=== PATIENT | male | born 1975 | race African-American/Black ===

== ENCOUNTER 2019-05-20 05:04 | Emergency (ER) | payer OTHER ==
--- NOTE | 2019-05-20 05:47 | ED ---
Head Injury - HPI Summary HPI Summary: Pt. is a 43 y.o male who presents to the ER for head and face injury that occurred today around 0300. Pt. is an inmate at [employer]. Pt. states he was in his top bunk and was trying to hang a TV from the light when he lost his balance and fell. Pt. states he stuck his face on the ground. He believes he lost consciousness. Pt. c/o head/face/neck pain. Denies any other injuries. Denies CP, SOB, abd. pain. Past hx of DM and GERD. Unaware of last tetanus immunization. Sxs are moderate in severity. Touching affective area makes sxs worse. Rest makes sxs better. - History Of Current Complaint Chief Complaint: EDHeadInjury Stated Complaint: HEAD LAC PER GUARD Time Seen by Provider: 05/20/19 05:40 Hx Obtained From: Patient Pain Intensity: 7 - Allergies/Home Medications Allergies/Adverse Reactions: Allergies Allergy/AdvReac Type Severity Reaction Status Date / Time No Known Allergies Allergy Verified 05/20/19 05:07 Home Medications: Home Medications Calcium Polycarbophil [Fibercon] 500 mg PO BID 05/20/19 [History Confirmed 05/20] Omeprazole CAP (NF) [Prilosec CAP* 20 MG] 20 mg PO DAILY 05/20/19 [History Confirmed 05/20/19] glipiZIDE [Glucotrol] 5 mg PO DAILY 05/20/19 [History Confirmed 05/20/19] hydroCHLOROthiazide [Hydrochlorothiazide] 50 mg PO DAILY 05/20/19 [History Confirmed 05/20/19] PMH/Surg Hx/FS Hx/Imm Hx Previously Healthy: Yes Infectious Disease History: No Infectious Disease History: Denies: Traveled Outside the [place] in Last 30 Days - Family History Known Family History: Positive: Non-Contributory - Social History Occupation: Unemployed Lives: Dormitory/Roommates - [employer] [facility] Alcohol Use: None Substance Use Type: Reports: None Smoking Status (MU): Light Every Day Tobacco Smoker Review of Systems Eyes: Negative Negative: Photophobia, Blurred Vision, Diplopia Positive: Epistaxis Cardiovascular: Negative Negative: Chest Pain Respiratory: Negative Negative: Shortness Of Breath Gastrointestinal: Negative Negative: Abdominal Pain, Vomiting Musculoskeletal: Negative Positive: Bruising Positive: Headache. Negative: Weakness, Paresthesia, Numbness, Syncope, Slurred Speech All Other Systems Reviewed And Are Negative: Yes Physical Exam Triage Information Reviewed: Yes Vital Signs On Initial Exam: Initial Vitals Temp Pulse Resp BP Pulse Ox 99.4 F 95 18 124/91 98 05/20/19 05:07 05/20/19 05:07 05/20/19 05:07 05/20/19 05:07 05/20/19 05:07 Vital Signs Reviewed: Yes Appearance: Positive: Well-Appearing - Pt. sitting up in bed in NAD. Answers questions appropriately. Correction guards present. Skin: Positive: Warm, Dry Head/Face: Positive: Other - Ecchymosis around left eye. 1 cm irregular laceration noted to left nasal bridge. Minimal bleeding. Eyes: Positive: EOMI, ROLAN, Other: - Subconjunctival hemorrhage noted to left lateral eye. Conjunctival injection to right eye right lateral. No hyphema bialterally. Anterior chambers clear. EOMI within pain. ENT: Positive: Other - No epistaxis. No septal hematoma. Neck: Positive: Other: - Mild diffuse cervical tenderness Respiratory/Lung Sounds: Positive: Breath Sounds Present, Other - Mild expiratory wheeze throughout. Cardiovascular: Positive: Normal, RRR Musculoskeletal: Positive: Normal, Strength/ROM Intact Neurological: Positive: Normal, Alert, Oriented to Person Place, Time, CN Intact II-III Psychiatric: Positive: Affect/Mood Appropriate Procedures - Sedation Patient Received Moderate/Deep Sedation with Procedure: No - Laceration/Wound Repair 1 Location: face Description: Irregular Length, Depth and Shape: 1cm irregular Betadine Prep?: No - hibiclens Laceration/Wound Explored: clean Closure: Skin Adhesive Layer Closure?: No Sterile Dressing Applied?: No Diagnostics - Vital Signs Vital Signs Temp Pulse Resp BP Pulse Ox 05/20/19 05:07 99.4 F 95 18 124/91 98 - Laboratory Lab Statement: Any lab studies that have been ordered have been reviewed, and results considered in the medical decision making process. Head Injury Course/Dx Course Of Treatment: Pt. presenting with facial injury. Stable VS. Tetanus updated. Tylenol given for pain. Will obtain ct scan to evaluate for fracture, brain bleed, skull fx. CT maxface per radiology: IMPRESSION: 1. There is a comminuted fracture noted of the nasal bone. There is overlying. soft tissue swelling and subcutaneous emphysema. There is left-sided. periorbital soft tissue swelling noted. 2. There is hemorrhagic material noted within the left maxillary sinus. There. is a displaced fracture noted of the medial wall of the left maxillary sinus. CT brain and neck negative for acute findings per radiology. Results discussed. Pt. will need to f.u with ENT within one week. Augmentin prophylactically. Tylenol or motrin for pain as directed. Ice and elevate. To return to ER if sxs change or worsen. Pt. understands and agrees with plan. - Diagnoses Differential Diagnosis/HQI/PQRI: Cerebral Contusion, Cervical Sprain, Concussion With LOC, Hematoma, Intracranial Bleed, Laceration, Nasal Fracture, Orbital Fracture, Skull Fracture, Zygomatic Fracture Provider Diagnoses: Subconjunctival hemorrhage, Facial laceration, Nasal fracture, Maxillary sinus fracture Discharge ED - Sign-Out/Discharge Documenting (check all that apply): Patient Departure - Discharge Plan Condition: Good Disposition: HOME Patient Education Materials: Nasal Fracture (ED), Facial Fracture (ED), Subconjunctival Hemorrhage (ED), Skin Adhesive Care (ED) Referrals: Kori HIGGINBOTHAM,[facility] [Primary Care Provider] - Willie Suarez MD [Medical Doctor] - Additional Instructions: Schedule a follow up appointment with ENT within one week Recommend Augmentin 875mg BID x 7 days Ice and elevate intermittently Tylenol or Motrin for pain as directed Return to ER if symptoms change or worsen - Billing Disposition and Condition Condition: GOOD Disposition: Home
[2019-05-20] MEDS ORDERED: Acetaminophen TAB* 325 MG PO ONE (05:48)
[2019-05-20] MEDS ORDERED: Tetan/Diph/Pertus SYR(Tdap)* 0.5 ML SYR(BOOSTRIX) use SYR contains LATEX IM ONE (05:48)
[2019-05-20 07:16] VITALS: BP 129/76
[2019-05-20 07:44] LABS: HIV 4th Generation Nonreactive (Nonreactive)
== END 2019-05-20 07:15 | disposition home or self-care (01) ==
LOC: ED 05:04
DX: S02.2XXA Fracture of nasal bones, initial encounter for closed fracture (principal); S02.40DA Maxillary fracture, left side, initial encounter for closed fracture; S01.21XA Laceration without foreign body of nose, initial encounter; H11.32 Conjunctival hemorrhage, left eye; Z23 Encounter for immunization; W06.XXXA Fall from bed, initial encounter; Y92.143 Cell of prison as the place of occurrence of the external cause; F17.200 Nicotine dependence, unspecified, uncomplicated; E11.9 Type 2 diabetes mellitus without complications; K21.9 Gastro-esophageal reflux disease without esophagitis; Z79.84 Long term (current) use of oral hypoglycemic drugs; Z79.899 Other long term (current) drug therapy
CPT/HCPCS: 36415; 70450; 70486; 72125; 87389; 90471; 90715; 99282; A9270-GY